=== PATIENT | male | born 2000 | race Caucasian/White ===

== ENCOUNTER 2022-09-19 12:23 | Emergency (ER) | payer MEDICAID ==
[~2022-09-19] VITALS: Ht 167.6 cm; Wt 68.0 kg
[2022-09-19 12:51] VITALS: BP_SYST 123
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
--- NOTE | 2022-09-19 13:05 | NUR ---
DR. ECHEVERRIA AT BEDSIDE TO ASSESS PT.
[2022-09-19] MEDS ORDERED: NAPR-688 PO (13:47)
[2022-09-19 14:30] VITALS: BP_SYST 123
--- NOTE | 2022-09-19 14:30 | NUR ---
Patient given written and verbal discharge instructions and verbalizes understanding. ER MD discussed with patient the results and treatment provided. Patient in stable condition. ID arm band removed. Rx of naproxen given. Patient educated on pain management and to follow up with PMD. Opportunity for questions provided and answered. Medication side effect fact sheet provided.
== END 2022-09-19 14:30 | disposition home or self-care (01) ==
LOC: SED 12:23
DX: M79.18 Myalgia, other site (principal); M25.512 Pain in left shoulder; M25.562 Pain in left knee; Z79.899 Other long term (current) drug therapy
CPT/HCPCS: 73030; 73564; 99284